=== PATIENT | female | born 1975 | race Caucasian/White ===

== ENCOUNTER → 2018-05-15 | Outpatient (CLI) | payer OTHER ==
--- NOTE | 2018-05-16 08:55 | RADIOLOGY IMAGING REPORT ---
FAC[place] [facility] [place]IENT NAME: VONDA BRITT : [id number] MR: [id number]: [id number] EXAM DATE: [id number] ORDERING PHYSICIAN: SILVERIO CLARK TECHNOLOGIST: Maria Ines Calvert PROCEDURE:BILATERAL DIGITAL SCREENING MAMMOGRAM WITH CAD ASSISTED INTERPRETATION & 3D TOMOSYNTHESIS COMPARISON:Prior mammograms 03/25/16, 03/19/15, 12/31/13. INDICATIONS:screening FINDINGS: Moderate amount of fibroglandular tissue is seen throughout the breasts. The parenchymal pattern has remained stable allowing for difference in mammographic technique & patient positioning. There is no evidence of malignant appearing mass, malignant appearing calcifications or other secondary sign of malignancy in either breast. DIAGNOSTIC CATEGORY 1--NEGATIVE. RECOMMENDATIONS: ROUTINE MAMMOGRAM AND CLINICAL EVALUATION. IMPRESSION: BIRADS 1: Negative. No significant abnormality is seen. Dictated by: Andie Valerio M.D. on 05/15/2018 at 17:11 Transcribed by: ISREAL on 05/16/2018 at 8:23 Approved by: Andie Valerio M.D. on 05/16/2018 at 8:54 [facility]
== END ==
LOC: MAMO 00:42
PROVIDERS: ATTEND Nurse Practitioner Family
DX: Z12.31 Encounter for screening mammogram for malignant neoplasm of breast (principal)
CPT/HCPCS: 77063; 77067